=== PATIENT | female | born 1975 | race Two or more races ===

== ENCOUNTER 2018-07-24 10:30 | Emergency (ER) | payer OTHER ==
[2018-07-24 10:40] VITALS: BP 150/82; PULSE 78; TEMP 98.3; BMI 22.1
[2018-07-24] MEDS ORDERED: KETOROLAC TROMETHAMINE 60 MG/2 ML VIAL IM ONE (10:54)
[2018-07-24] MEDS ORDERED: KETOROLAC TROMETHAMINE 60 MG/2 ML VIAL ONE (11:03)
--- NOTE | 2018-07-24 11:07 | PDOC ---
History of Present Illness - General Chief Complaint: Headache Stated Complaint: HEADACHE Time Seen by Provider: 07/24/18 10:50 History Source: Patient Exam Limitations: No Limitations - History of Present Illness Initial Comments: 07/24/18 11:11 43 y/o female presents to the emergency room with complaints of headache which she states started this morning describes a throbbing sensation to her occipital region. Patient denies visual changes, nausea, neck pain difficulty swallowing, or dizziness. Patient states took nothing for the above and decided come to the ER. Patient denies medical history, recent travel, recent head trauma, recent illness recent dental work, or right ear pain. Timing/Duration: reports: 1-3 hours Severity: Yes: mild Associated Symptoms: reports: other (headache) Past History - Travel Traveled outside of the country in the last 30 days: No Close contact w/someone who was outside of country & ill: No - Past Medical History Allergies/Adverse Reactions: Allergies Allergy/AdvReac Type Severity Reaction Status Date / Time No Known Allergies Allergy Verified 07/24/18 10:40 Home Medications: Ambulatory Orders NK [No Known Home Medication] 07/24/18 Asthma: No Cancer: No Cardiac Disorders: No COPD: No Diabetes: No HTN: No Seizures: No Thyroid Disease: No - Reproductive History (#): 2 Para: 1 - Suicide/Smoking/Psychosocial Hx Smoking Status: No Smoking History: Never smoked Number of Cigarettes Smoked Daily: 0 Hx Alcohol Use: No Drug/Substance Use Hx: No Hx Substance Use Treatment: No Patient Lives Alone: No Lives with/in: spouse/SO Review of Systems - Review of Systems Able to Perform ROS?: Yes Constitutional: No: Symptoms Reported HEENTM: No: Symptoms Reported Respiratory: No: Symptoms reported Cardiac (ROS): No: Symptoms Reported ABD/GI: No: Symptoms Reported : No: Symptoms Reported Musculoskeletal: No: Symptoms Reported Integumentary: No: Symptoms Reported Neurological: Yes: Headache *Physical Exam - Vital Signs Last Vital Signs Temp Pulse Resp BP Pulse Ox 98.3 F 78 18 150/82 99 07/24/18 10:37 07/24/18 10:37 07/24/18 10:37 07/24/18 10:37 07/24/18 10:37 - Physical Exam General Appearance: Yes: Nourished, Appropriately Dressed. No: Apparent Distress HEENT: positive: TMs Normal, Pharynx Normal. negative: Pale Conjunctivae Respiratory/Chest: positive: Lungs Clear, Normal Breath Sounds. negative: Respiratory Distress, Accessory Muscle Use Cardiovascular: positive: Regular Rhythm, Regular Rate. negative: Murmur Gastrointestinal/Abdominal: positive: Soft Extremity: positive: Normal Capillary Refill Integumentary: positive: Normal Color, Warm, Moist Neurologic: positive: Motor Strength 5/5 (ambulatory) Medical Decision Making - Medical Decision Making 07/24/18 11:20 CC: right occipital headache since this am Exam: vss, no occipital tenderness Plan: toradol IM *DC/Admit/Observation/Transfer Diagnosis at time of Disposition: Headache - Discharge Dispostion Disposition: HOME Condition at time of disposition: Improved - Referrals - Patient Instructions Printed Discharge Instructions: DI for Headache Additional Instructions: Take Motrin 600mg every 8 hours for adequate pain control. - Post Discharge Activity
== END 2018-07-24 11:44 | disposition home or self-care (01) ==
LOC: JERFT 10:30
PROC: 3E0233Z Introduction of Anti-inflammatory into Muscle, Percutaneous Approach (ICD-10-PCS; principal; 2018-07-24)
DX: R51 Headache (principal)
CPT/HCPCS: 96372; 99281-25

== ENCOUNTER 2018-07-27 16:37 | Emergency (ER) | payer OTHER ==
--- NOTE | 2018-07-27 17:24 | PDOC ---
Rapid Medical Evaluation Time Seen by Provider: 07/27/18 17:14 Medical Evaluation: Allergies Allergy/AdvReac Type Severity Reaction Status Date / Time No Known Allergies Allergy Verified 07/24/18 10:40 07/27/18 17:21 I have performed a brief in-person evaluation of this patient. The patient presents with a chief complaint of: occipital headache Pertinent physical exam findings: No focal findings. FAROM cervical spine. I have ordered the following: IVF, toradol, reglan, benadryl The patient will proceed to the ED for further evaluation. 07/27/18 17:25 Discharge Disposition - Diagnosis Headache - Referrals - Patient Instructions - Post Discharge Activity
[2018-07-27] MEDS ORDERED: METOCLOPRAMIDE HCL INJECTION 10 MG/2 ML VIAL IVPUSH ONE (17:27)
[2018-07-27] MEDS ORDERED: KETOROLAC TROMETHAMINE 30 MG/1 ML VIAL IVPUSH ONE (17:27)
[2018-07-27] MEDS ORDERED: SODIUM CHLORIDE 1,000 ML IV STA (17:27)
[2018-07-27 17:28] VITALS: BMI 22.1
[2018-07-27] MEDS ORDERED: METOCLOPRAMIDE HCL INJECTION 10 MG/2 ML VIAL ONE (17:48)
[2018-07-27] MEDS ORDERED: KETOROLAC TROMETHAMINE 30 MG/1 ML VIAL ONE (17:49)
--- NOTE | 2018-07-27 17:52 | PDOC ---
History of Present Illness - General Chief Complaint: Headache Stated Complaint: HEAD PAIN Time Seen by Provider: 07/27/18 17:14 History Source: Patient - History of Present Illness Severity: Yes: severe Past History - Past Medical History Allergies/Adverse Reactions: Allergies Allergy/AdvReac Type Severity Reaction Status Date / Time No Known Allergies Allergy Verified 07/27/18 17:25 Home Medications: Ambulatory Orders Ibuprofen [Motrin -] 600 mg PO TID PRN 07/27/18 Ibuprofen [Motrin -] 800 mg PO Q6H #30 tablet 07/27/18 Asthma: No Cancer: No Cardiac Disorders: No COPD: No Diabetes: No HTN: No Seizures: No Thyroid Disease: No - Reproductive History (#): 2 Para: 1 - Suicide/Smoking/Psychosocial Hx Smoking Status: No Smoking History: Never smoked Number of Cigarettes Smoked Daily: 0 Hx Alcohol Use: No Drug/Substance Use Hx: No Hx Substance Use Treatment: No Review of Systems - Review of Systems Constitutional: No: Chills, Fever HEENTM: No: Blurred Vision ABD/GI: No: Nausea, Vomiting Neurological: Yes: Headache. No: Numbness, Tingling, Weakness, Dizziness *Physical Exam - Vital Signs Last Vital Signs Temp Pulse Resp BP Pulse Ox 98.6 F 62 18 121/68 99 07/27/18 17:26 07/27/18 17:26 07/27/18 17:26 07/27/18 17:26 07/27/18 17:26 - Physical Exam General Appearance: Yes: Appropriately Dressed. No: Apparent Distress HEENT: positive: Normal Voice Neck: positive: Supple. 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 Was seen in ED 4 days ago for headache which she said started approximately 2 weeks ago. States pain was located to the right occipital area initially but now located to left occiput, constant, unable to describe, 10 out of 10 w/ no exacerbating factors. States she was given IM injection on prior visit that did not relieve pain. Taking motrin at home w/ no relief. No imaging done on last visit. Denies dizziness, nausea, vomiting, visual changes, photophobia, URI sxs , f/c, sensory changes, focal weakness or unexplained weight loss. No history of similar pain in past see exam New onset ALVARADO 2nd visit for same Not better w/ motrin No neuro sxs No infectious sxs No unexplained weight loss Stable w/ no focal deficits on exam -pain control -CTH -anticipate discharge w/ possible neuro f/u 07/27/18 18:32 Signed out to 7pm team pending CT and reassessment *DC/Admit/Observation/Transfer Diagnosis at time of Disposition: Headache Qualifiers: Headache type: unspecified Headache chronicity pattern: acute headache Intractability: not intractable Qualified Code(s): R51 - Headache - Prescriptions Prescriptions: Ibuprofen [Motrin -] 800 mg PO Q6H #30 tablet - Referrals Referrals: Vladimir Sarah MD [Primary Care Provider] - Anshul Archer MD [Staff Physician] - - Patient Instructions Printed Discharge Instructions: DI for Headache Additional Instructions: The cause of your headache is unclear at this time and you will need further evaluation by a neurologist Please call Dr Archer this week for an appointment Take motrin as directed - Post Discharge Activity
[2018-07-27 17:56] VITALS: BP 123/81; PULSE 67; TEMP 98.1
--- NOTE | 2018-07-27 20:08 | PDOC ---
*Physical Exam - Vital Signs Last Vital Signs Temp Pulse Resp BP Pulse Ox 98.1 F 67 16 123/81 100 07/27/18 17:51 07/27/18 17:51 07/27/18 17:51 07/27/18 17:51 07/27/18 17:51 ED Treatment Course - ADDITIONAL ORDERS Additional order review: Laboratory Results 07/27/18 18:20 Urine HCG, Qual Negative - Medications Given in the ED: ED Medications Discontinued Medications Generic Name Dose Route Start Last Admin Trade Name Sam PRN Reason Stop Dose Admin Diphenhydramine HCl 25 mg 07/27/18 17:27 07/27/18 18:19 Benadryl Injection - IVPUSH 07/27/18 17:28 Not Given ONCE ONE Sodium Chloride 1,000 mls @ 1,000 mls/hr 07/27/18 17:27 07/27/18 18:20 Normal Saline - IV 07/27/18 18:26 1,000 mls/hr ASDIR STA Administration Ketorolac Tromethamine 30 mg 07/27/18 17:27 07/27/18 18:00 Toradol Injection - IVPUSH 07/27/18 17:28 30 mg ONCE ONE Administration Metoclopramide HCl 10 mg 07/27/18 17:27 07/27/18 18:00 Reglan Injection - IVPUSH 07/27/18 17:28 10 mg ONCE ONE Administration Medical Decision Making - Medical Decision Making 07/27/18 20:[address] head wnl. will d/.c home *DC/Admit/Observation/Transfer Diagnosis at time of Disposition: Headache Qualifiers: Headache type: unspecified Headache chronicity pattern: acute headache Intractability: not intractable Qualified Code(s): R51 - Headache - Discharge Dispostion Disposition: HOME - Prescriptions Prescriptions: Ibuprofen [Motrin -] 800 mg PO Q6H #30 tablet - Referrals Referrals: Vladimir Sarah MD [Primary Care Provider] - Anshul Archer MD [Staff Physician] - Call tomorrow - Patient Instructions Printed Discharge Instructions: DI for Headache Additional Instructions: The cause of your headache is unclear at this time and you will need further evaluation by a neurologist Please call Dr Archer this week for an appointment Take motrin as directed - Post Discharge Activity Forms/Work/School Notes: Back to Work
== END 2018-07-27 20:31 | disposition home or self-care (01) ==
LOC: JER 16:37
PROC: 3E0333Z Introduction of Anti-inflammatory into Peripheral Vein, Percutaneous Approach (ICD-10-PCS; principal; 2018-07-27)
PROC: 3E033GC Introduction of Other Therapeutic Substance into Peripheral Vein, Percutaneous Approach (ICD-10-PCS; 2018-07-27)
PROC: 3E0337Z Introduction of Electrolytic and Water Balance Substance into Peripheral Vein, Percutaneous Approach (ICD-10-PCS; 2018-07-27)
DX: R51 Headache (principal)
CPT/HCPCS: 70450-TC; 84703; 96361; 96374; 96375; 99282-25; J7030

== ENCOUNTER 2019-10-06 15:51 | Emergency (ER) | payer OTHER ==
[2019-10-06 16:10] VITALS: BP 135/81; PULSE 66; TEMP 98.1; BMI 25.3
[2019-10-06] MEDS ORDERED: IBUPROFEN 400 MG TABLET (FP) PO ONE ×2 (16:50→17:00)
--- NOTE | 2019-10-06 16:56 | PDOC ---
History of Present Illness - General History Source: Patient - History of Present Illness Timing/Duration: reports: other <Patricia Robles - Last Filed: 10/06/19 18:06> <Lorraine Tabor - Last Filed: 10/07/19 07:45> - General Chief Complaint: Headache Stated Complaint: HEADACHE Time Seen by Provider: 10/06/19 16:14 Past History - Medical History Asthma: No Cancer: No Cardiac Disorders: No COPD: No Diabetes: No HTN: No Seizures: No Thyroid Disease: No - Reproductive History Is Patient Now?: No (#): 2 Para: 1 - Psycho-Social/Smoking History Smoking Status: No Smoking History: Never smoked Have you smoked in the past 12 months: No Number of Cigarettes Smoked Daily: 0 Information on smoking cessation initiated: No - Substance Abuse Hx (Audit-C & DAST Scrn) How often the patient has a drink containing alcohol: Never Score: In Men: 4 or > Positive; In Women: 3 or > Positive: 0 Screen Result (Pos requires Nsg. Audit-10AR): Negative In the last yr the pt used illegal drug/Rx for NonMed reason: No Score: Yes response is considered Positive: 0 Screen Result (Positive result requires Nsg. DAST-10): Negative <Patricia Robles - Last Filed: 10/06/19 18:06> <Lorraine Tabor - Last Filed: 10/07/19 07:45> - Medical History Allergies/Adverse Reactions: Allergies Allergy/AdvReac Type Severity Reaction Status Date / Time No Known Allergies Allergy Verified 10/06/19 16:07 Home Medications: Ambulatory Orders Ibuprofen 800 mg PO QID PRN #20 tablet 07/27/18 Ibuprofen [Motrin -] 600 mg PO TID PRN 07/27/18 Ibuprofen [Motrin -] 800 mg PO Q6H #30 tablet 10/06/19 Review of Systems - Review of Systems Constitutional: No: Chills, Fever, Unexplained wgt Loss HEENTM: No: Blurred Vision ABD/GI: No: Nausea, Vomiting : Yes: Dysuria. No: Frequency, Flank Pain, Hematuria Neurological: Yes: Headache. No: Dizziness <Patricia Robles - Last Filed: 10/06/19 18:06> *Physical Exam - Vital Signs Last Vital Signs Temp Pulse Resp BP Pulse Ox 98.1 F 66 18 135/81 99 10/06/19 16:01 10/06/19 16:01 10/06/19 16:01 10/06/19 16:01 10/06/19 16:01 - Physical Exam General Appearance: Yes: Appropriately Dressed. No: Apparent Distress HEENT: positive: Normal Voice Neck: positive: Supple Respiratory/Chest: negative: Respiratory Distress Gastrointestinal/Abdominal: positive: Soft. 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 Oriented, Alert, Normal Mood/Affect, Motor Strength 5/5 <Patricia Robles - Last Filed: 10/06/19 18:06> - Vital Signs Last Vital Signs Temp Pulse Resp BP Pulse Ox 98.1 F 66 18 135/81 99 10/06/19 16:01 10/06/19 16:01 10/06/19 16:01 10/06/19 16:01 10/06/19 16:01 <Lorraine Tabor - Last Filed: 10/07/19 07:45> ED Treatment Course - Medications Given in the ED: ED Medications Discontinued Medications Generic Name Dose Route Start Last Admin Trade Name Sam PRN Reason Stop Dose Admin Ibuprofen 800 mg 10/06/19 16:50 10/06/19 17:02 Motrin - PO 10/06/19 16:51 800 mg ONCE ONE Administration <Lorraine Tabor - Last Filed: 10/07/19 07:45> Medical Decision Making - Medical Decision Making 10/06/19 16:51 44 yo F, no sig hx, s/p tubal ligation remotely, chronic HAs, seen at [facility] 07/2018 w/ neg head CT, has neuro f/u in several weeks, here w/ her usual ALVARADO x 3 days, on and off, achy, diffuse, not improving w/ tylenol. No dizziness, visual change, n/v. Denies unexplained weight loss. Also c/o ? dysuria x 2 month. No hematuria, flank pain, n/v/f/c. Pt also reports insomnia x 3 months. No anxiety, anhedonia, SI or HI. No known psych d/o. see exam Acute on chronic ALVARADO Neg CT last year No red flags at this time Dc w/ motrin prn ? dysuria x 2 months No e/p pyelo UA wnl, will f/u on ucx -PMD f/u Insomnia PMD f/u for further eval 10/06/19 18:08 UA wnl. Pt reports improvement in ALVARADO w/ motrin. Stable for dc w/ PMD f/u <Patricia Robles - Last Filed: 10/06/19 18:06> - Medical Decision Making The patient was seen and evaluated in conjunction with midlevel provider under my direct supervision, ancillary studies were reviewed. I agree with the plan as outlined with_JOSE GUADALUPE Robles. HPI, workup/dispo as outlined. VS reviewed, wnl. anticipate discharge, pcp followup, return precautions 10/07/19 07:45 <Lorraine Tabor - Last Filed: 10/07/19 07:45> Discharge - Discharge Information Problems reviewed: Yes <Patricia Robles - Last Filed: 10/06/19 18:06> <Lorraine Tabor - Last Filed: 10/07/19 07:45> - Discharge Information Clinical Impression/Diagnosis: Dysuria Chronic headache Qualifiers: Headache type: unspecified Intractability: not intractable Qualified Code(s): R51 - Headache Insomnia Qualifiers: Insomnia type: unspecified Qualified Code(s): G47.00 - Insomnia, unspecified Condition: Improved Disposition: HOME - Additional Discharge Information Prescriptions: Ibuprofen [Motrin -] 800 mg PO Q6H #30 tablet - Follow up/Referral Referrals: Vladimir Sarah MD [Primary Care Provider] - - Patient Discharge Instructions Patient Printed Discharge Instructions: DI for Headache Additional Instructions: Please follow up with your neurologist and PMD Your urine showed no infection - Post Discharge Activity
[2019-10-06 17:59] LABS: HCG,QUALITATIVE URINE Negative; URINE APPEARANCE CLEAR; URINE BILIRUBIN NEGATIVE (NEGATIVE); URINE COLOR YELLOW; URINE GLUCOSE (UA) NEGATIVE (NEGATIVE); URINE KETONE NEGATIVE (NEGATIVE); URINE LEUK ESTERASE NEGATIVE (NEGATIVE); URINE NITRITE NEGATIVE (NEGATIVE); URINE PROTEIN NEGATIVE (NEGATIVE); URINE UROBILINOGEN 0.2 mg/dL (0.2-1.0)
== END 2019-10-06 18:44 | disposition home or self-care (01) ==
LOC: JER 15:51
DX: R30.0 Dysuria (principal); R51 Headache; G47.00 Insomnia, unspecified
CPT/HCPCS: 81003; 84703; 87086; 99284-25

== ENCOUNTER → 2022-10-29 | Day surgery (SDC) | payer OTHER | END | disposition home or self-care (01) | LOC: FMAMMOTONE 12:14 | PROVIDERS: ATTEND Registered Nurse | PROC: 0HBT3ZX Excision of Right Breast, Percutaneous Approach, Diagnostic (ICD-10-PCS; principal; 2022-10-29) | DX: N60.81 Other benign mammary dysplasias of right breast (principal); N64.89 Other specified disorders of breast; R92.1 Mammographic calcification found on diagnostic imaging of breast | CPT/HCPCS: 19081; 76098-TC-FY; 87899; 88305-TC; A4648 ==

== ENCOUNTER 2022-11-30 05:11 | Day surgery (SDC) | payer OTHER ==
[2022-11-26 12:08] VITALS: BMI 22.1
[2022-11-30] MEDS ORDERED: MIDAZOLAM HCL 2 MG/2 ML SINGLE DOSE VIAL ONE (12:58)
[2022-11-30] MEDS ORDERED: FENTANYL CITRATE/PF 50 MCG/ML VIAL ONE (12:58)
[2022-11-30 13:39] VITALS: RESP 18
[2022-11-30 14:27] VITALS: BP 118/76; PULSE 62; TEMP 97.1
== END 2022-11-30 14:50 | disposition home or self-care (01) ==
LOC: JASU-SURG 05:11
PROVIDERS: ATTEND Urology
PROC: 0TF3XZZ Fragmentation in Right Kidney Pelvis, External Approach (ICD-10-PCS; principal; 2022-11-30 12:00)
DX: N20.0 Calculus of kidney (principal)
CPT/HCPCS: 81025